=== PATIENT | male | born 1965 | race Caucasian/White ===

== ENCOUNTER 2020-01-29 10:47 | Inpatient (IN) ==
[2020-01-29] MEDS ORDERED: 0.9 % SODIUM CHLORIDE 500 ML IV ONE (11:26)
--- NOTE | 2020-01-29 11:42 | Emergency Department Note ---
HPI General Chief complaint: Weakness Stated complaint: shortness of breath Time Seen by Provider: 01/29/20 11:03 Source: patient Mode of arrival: ambulatory Limitations: no limitations History of Present Illness HPI Narrative: Narrative: Patient is coming the emergency room accompanied by his , Stephanie, due to confusion and weakness as well as some shaking of his extremities. At home he is on oxygen but he is uncertain and she is not perfectly certain thinking it is 1 to 2 L/min. He was discharged 5 days ago from [facility] after a 5-day stay related to hypoxia and CO2 retention. Suspicion was high for sleep apnea and he was set up for an appointment for this but he unders tood that he could have a home study and so canceled this. New information is that he cannot have a home study, it does not qualify for what ever reason, and has not yet had the and facilities test/appointment set up for sleep apnea diagnosis or not. He feels cold all the time. He has no thyroid disease and they are uncertain if he was checked. He has no upper respiratory symptoms. He has had some mild back and neck discomfort since his hospital stay. He does suffer some with some anxiety and has had difficulties with a borrowed CPAP machine getting used to having it on his face feeling anxious about that. He has sudden jerks here and there on various parts of his body particularly his hands or arms. He falls asleep very easily even abnormally/unexpectedly. Both he and his confirmed that he was not on any diuretic prior to his admission and his weight did come down 25 pounds during those 5 days. They got quite a bit of fluid out of his legs it sounds like. He had had swelling in his legs for about a year. Related Data Home Medications Medication Instructions Recorded Confirmed acetazolamide 125 mg PO BID 01/29/20 01/29/20 amlodipine 10 mg PO QDAY 01/29/20 01/29/20 aspirin 81 mg PO QDAY 01/29/20 01/29/20 blood-glucose meter [True Metrix 01/29/20 01/29/20 Air Glucose Meter] glipizide 10 mg PO BID 01/29/20 01/29/20 hydrochlorothiazide 25 mg PO QDAY 01/29/20 01/29/20 hydroxyzine HCl 50 mg PO Q4H PRN 01/29/20 01/29/20 losartan 100 mg PO QDAY 01/29/20 01/29/20 metformin 1,000 mg PO BID 01/29/20 01/29/20 metoprolol succinate 50 mg PO BID 01/29/20 01/29/20 potassium chloride 20 meq PO QDAY 01/29/20 01/29/20 spironolactone 25 mg PO BID 01/29/20 01/29/20 torsemide 20 mg PO QDAY 01/29/20 01/29/20 Allergies Allergy/AdvReac Type Severity Reaction Status Date / Time lisinopril Allergy Verified 01/29/20 10:56 Review of Systems ROS ROS Narrative: Narrative: 12 system Review of Systems negative except as mentioned above. [facility] Narrative Patient History Narrative: Narrative: Medical/Surgical/Family History All Active Problems (Updated 01/29/20 @ 13:28 by Mauri Juarez DO) Acute renal failure (ARF) (Acute) Hypoglycemia (Acute) Acute and chronic respiratory failure with hypoxia (Acute) Hyperkalemia (Acute) Diabetes mellitus type 2 in obese (Acute) History of acute respiratory failure (Acute) History of chronic respiratory failure (Acute) Obesity hypoventilation syndrome (Acute) Diastolic heart failure (Acute) Hypertension, essential (Acute) Diabetes mellitus, type 2 (Acute) Obesity (BMI 30-39.9) (Acute) Medical History (Updated 01/29/20 @ 13:28 by Mauri Juarez DO) Diabetes mellitus, type 2 (Acute) Diastolic heart failure (Acute) History of acute respiratory failure (Acute) History of chronic respiratory failure (Acute) Hypertension, essential (Acute) Obesity (BMI 30-39.9) (Acute) Obesity hypoventilation syndrome (Acute) Family History (Updated 01/29/20 @ 11:54 by Mauri Juarez DO) Colon cancer Father Cancer Mother Social History Smoking Status: Never smoker Exam Narrative Narrative: Narrative: General Limitations: no limitations General appearance: Present in no apparent distress, lethargic, nontoxic, obtunded (Intermittently seems quite slow in his responses but other times seems to be more alert and awake. This comes and goes fairly quickly.) and sleepy Head Head: Present atraumatic and normocephalic Eye Eye: Present normal appearance, PERRL and EOMI ENT ENT: Present normal oropharynx and mucous membranes dry (Mildly) Neck Neck: Present trachea midline; Absent lymphadenopathy and thyromegaly Chest Chest: Present symmetric chest wall rise Respiratory Respiratory: Present decreased breath sounds and other (Breathing seems rather shallow and mildly irregular.); Absent respiratory distress, rales/crackles, wheezes, stridor, accessory muscle use and prolonged expiratory phase Cardiovascular Cardiovascular: Present regular rate and normal rhythm; Absent systolic murmur and diastolic murmur Adbominal Abdominal: Present soft and other (Moderate to severely obese.); Absent diste ntion, tenderness, guarding, rebound, rigidity, organomegaly and mass Extremities Extremities: Present other (Some bronzing and chronic changes and roughness to the skin of the anterior right lower extremity mostly the lower one half and wrinkling as if previous edema has resolved (which is reported).); Absent pedal edema, pretibial edema, calf tenderness and cyanosis Back Back: Absent CVA tenderness (R), CVA tenderness (L) and spinous process tenderness Neurological Neurological: Present CN II-XII intact and other (Seem very slow to come to his memory.Sleepy but seems appropriate and interactive and able to remember some things easily and well and other things) Psychiatric Psychiatric: Present flat affect and serious; Absent depressed, agitated, anx ious and poor eye contact Skin Skin: Present warm (WNL) and dry; Absent cyanosis and pallor Course Vital Signs Vital signs: Vital Signs Temperature 96.7 F L 01/29/20 10:48 Pulse Rate 66 01/29/20 10:48 Respiratory Rate 16 01/29/20 10:48 Blood Pressure 99/56 01/29/20 10:48 Pulse Oximetry (%) 100 01/29/20 10:48 Temperature 96.7 F L 01/29/20 10:48 Pulse Rate 70 01/29/20 15:01 Respiratory Rate 20 01/29/20 15:01 Blood Pressure 97/61 01/29/20 15:01 Pulse Oximetry (%) 92 01/29/20 15:01 [facility] MDM Narrative Medical decision making narrative: Narrative: 11:06 AM - interviewed and examined. Rather sleepy, slow talking, moderately to severely overweight individual with suspicion for sleep apnea. With confusion, weakness, tremors this all could be related. He was sent home recently on oxygen and he could have worsened in these regards. I am leaving him on oxygen at 2 L while I do an ABG, chest x-ray, labs. Old labs and information from [facility] to be reviewed. Did he have a TSH. He does have some moderate exophthalmos here today. 11:45 AM - EKG demonstrates sinus rhythm with PVC. No acute ACS. No old EKG available for comparison. 12:13 PM - ABG comes back with pH significantly low at 7.18, PCO2 significantly elevated at 72, PO2 of 73. Lactic acid is 1.4. Base excess slightly low at - 3.1. S O2 89.9. Bicarb 26.9. We will put him on BiPAP and minimize O2 administration. 1:10 PM - patient's labs come back with several critical's. White count is normal. Hemoglobin slightly concentrated at 17 0. Sodium is 128, potassium 6.4, chloride 86. BUN and creatinine markedly elevated at 127, 8.5. Glucose 29 and Accu-Chek confirms a 38 and half an amp of D50 ordered. LFTs are normal. Troponin elevated at 0.08. A serial/second troponin is ordered. CRP is 0.50. Review of patient's records from [facility] 5 days ago include medications of 4 diuretics. Presumably this is the cause of his acute severe renal failure. * Acetazolamide 250 mg tablets (was supposed to take a half twice a day?; Records from there indicate intent to discontinue this in the near future). * Hydrochlorothiazide 25 mg daily * Spironolactone 50 mg daily * And in his box was torsemide 20 mg daily Additional 500 cc of normal saline ordered. He has already had 1 L. An additional POC Chem-8 ordered to recheck on his electrolytes (especially potassium) 1:38 PM - after half an amp of glucose his blood sugars up to 87. Going to give him the second half of the ampule. 1:39 PM - I had canceled his second troponin but will go ahead with this blood draw. Very high likelihood that his elevation of 0.08 is only due to his acute renal failure but will prove this to be true with the second troponin. 3:14 PM - spoke with Dr. Myrick who is willing to consult on patient and has already written orders for fluids of D5 with bicarbonate at 125/h x 2 L. He has written orders for Kayexalate. And for future labs he believes that patient's renal failure will improve. Hospitalist call out to discuss for admission. 3:45 PM - time approximate, I spoke with Dr. Blu Ryan, hospitalist who is willing to accept this patient. Lab Data Result diagrams: 01/29/20 11:34 01/29/20 11:34 Labs: Lab Results 01/29/20 01/29/20 01/29/20 Range/Units 11:34 11:34 11:34 WBC 8.8 (4.5-11.0) K/mcL RBC 6.07 H (4.50-5.90) M/mcL Hgb 17.0 H (13.5-16.5) g/dL Hct 54.5 (41.0-55.0) % POC Hct (41-55) % MCV 89.8 (80.0-100.0) fL MCH 28.0 (26.0-34.0) pg MCHC 31.2 (31.0-36.0) g/dL RDW 15.2 H (11.5-14.5) % Plt Count 242 (140-440) K/mcL MPV 11.9 H (7.4-10.4) fL Neut % (Auto) 77.8 (38.0-78.0) % Lymph % (Auto) 8.3 L (15.0-49.0) % [place] % (Auto) 13.3 H (1.0-12.0) % Eos % (Auto) 0.3 (0.0-7.0) % Baso % (Auto) 0.3 (0.0-2.0) % Lymph # (Auto) 0.73 L (1.50-4.80) K/mcL [place] # (Auto) 1.17 H (0.10-0.90) K/mcL Eos # (Auto) 0.03 (0.00-0.70) K/mcL Baso # (Auto) 0.03 (0.00-0.20) K/mcL Absolute Neutrophils 6.84 (1.80-8.00) K/mcL POC Sodium (133-145) mEq/L Sodium 128 L (133-145) mmol/L POC Potassium (3.3-5.1) mEql/L Potassium 6.4 H* (3.3-5.1) mmol/L POC Chloride (96-108) mEq/L Chloride 86 L (96-108) mmol/L Carbon Dioxide 26 (22-30) mmol/L POC Total CO2 (22-30) mmol/L Anion Gap 16.0 (8.0-16.0) POC BUN (6-20) mg/dL BUN 127 H* (6-20) mg/dL Creatinine 8.5 H* (0.7-1.2) mg/dL POC Creatinine (0.6-1.2) mg/dL GFR Calculation 6 Glucose 29 L* (70-105) mg/dL POC Glucose (70-105) mg/dL Calcium 9.7 (8.6-10.4) mg/dL POC WB Ioniz Calcium (1.16-1.32) mmEq/L Total Bilirubin 0.4 (0.1-1.0) mg/dL AST 20 (<40) U/L ALT 37 (<40) U/L Alkaline Phosphatase 52 (39-117) U/L Troponin T 0.08 H* (<0.03) ng/mL C-Reactive Protein 0.50 (0.03-0.80) mg/dL Total Protein 7.1 (5.9-8.4) gm/dL Albumin 3.8 (3.2-5.2) gm/dL Globulin 3.3 (2.2-3.7) gm/dL Albumin/Globulin Ratio 1.2 (1.0-2.3) 01/29/20 01/29/20 Range/Units 13:55 13:55 WBC (4.5-11.0) K/mcL RBC (4.50-5.90) M/mcL Hgb (13.5-16.5) g/dL Hct (41.0-55.0) % POC Hct 54 (41-55) % MCV (80.0-100.0) fL MCH (26.0-34.0) pg MCHC (31.0-36.0) g/dL RDW (11.5-14.5) % Plt Count (140-440) K/mcL MPV (7.4-10.4) fL Neut % (Auto) (38.0-78.0) % Lymph % (Auto) (15.0-49.0) % [place] % (Auto) (1.0-12.0) % Eos % (Auto) (0.0-7.0) % Baso % (Auto) (0.0-2.0) % Lymph # (Auto) (1.50-4.80) K/mcL [place] # (Auto) (0.10-0.90) K/mcL Eos # (Auto) (0.00-0.70) K/mcL Baso # (Auto) (0.00-0.20) K/mcL Absolute Neutrophils (1.80-8.00) K/mcL POC Sodium 128 L (133-145) mEq/L Sodium (133-145) mmol/L POC Potassium 6.8 H* (3.3-5.1) mEql/L Potassium (3.3-5.1) mmol/L POC Chloride 95 L (96-108) mEq/L Chloride (96-108) mmol/L Carbon Dioxide (22-30) mmol/L POC Total CO2 24 (22-30) mmol/L Anion Gap (8.0-16.0) POC BUN 135 H* (6-20) mg/dL BUN (6-20) mg/dL Creatinine (0.7-1.2) mg/dL POC Creatinine 7.9 H* (0.6-1.2) mg/dL GFR Calculation Glucose (70-105) mg/dL POC Glucose 123 H (70-105) mg/dL Calcium (8.6-10.4) mg/dL POC WB Ioniz Calcium 1.10 L (1.16-1.32) mmEq/L Total Bilirubin (0.1-1.0) mg/dL AST (<40) U/L ALT (<40) U/L Alkaline Phosphatase (39-117) U/L Troponin T 0.07 H* (<0.03) ng/mL C-Reactive Protein (0.03-0.80) mg/dL Total Protein (5.9-8.4) gm/dL Albumin (3.2-5.2) gm/dL Globulin (2.2-3.7) gm/dL Albumin/Globulin Ratio (1.0-2.3) Discharge Plan Patient/Caregiver Discharge Instructions Pt seen by [employer]/PA only: No Clinical Impression: Acute renal failure (ARF), Hypoglycemia, Acute and chronic respiratory failure with hypoxia, Hyperkalemia, Diabetes mellitus type 2 in obese Patient Disposition: Xfer As Inpt ([facility]) Follow up with: Trevor Elliott DO [Primary Care Provider] - Prescriptions: No Action torsemide 20 mg Tablet 20 mg PO QDAY RF: 0 metoprolol succinate 50 mg Tablet Extended Release 24 Hr 50 mg PO BID RF: 0 glipizide 10 mg Tablet 10 mg PO BID RF: 0 acetazolamide 250 mg Tablet 125 mg PO BID RF: 0 spironolactone 25 mg Tablet 25 mg PO BID RF: 0 (DME) blood-glucose meter [True Metrix Air Glucose Meter] Kit MISCELLANEOUS RF: 0 amlodipine 10 mg Tablet 10 mg PO QDAY RF: 0 aspirin 81 mg Tablet,Chewable 81 mg PO QDAY RF: 0 hydroxyzine HCl 25 mg Tablet 50 mg PO Q4H PRN (Reason: .) RF: 0 hydrochlorothiazide 25 mg Tablet 25 mg PO QDAY RF: 0 losartan 100 mg Tablet 100 mg PO QDAY RF: 0 metformin 1,000 mg Tablet Extended Release 24hr 1,000 mg PO BID RF: 0 potassium chloride 20 mEq Tablet Extended Release 20 meq PO QDAY RF: 0
[2020-01-29 12:29] LABS: Basophils # (Auto) 0.03 K/mcL (0.00-0.20); Basophils % (Auto) 0.3 % (0.0-2.0); Eosinophils # (Auto) 0.03 K/mcL (0.00-0.70); Eosinophils % (Auto) 0.3 % (0.0-7.0); Hematocrit 54.5 % (41.0-55.0); Lymphocytes # (Auto) 0.73 K/mcL (1.50-4.80); Lymphocytes % (Auto) 8.3 % (15.0-49.0); Mean Cell Volume 89.8 fL (80.0-100.0); Mean Corpuscular HGB Conc 31.2 g/dL (31.0-36.0); Mean Platelet Volume 11.9 fL (7.4-10.4); Monocytes # (Auto) 1.17 K/mcL (0.10-0.90); Monocytes % (Auto) 13.3 % (1.0-12.0); Neutrophils % (Auto) 77.8 % (38.0-78.0); Platelet Count 242 K/mcL (140-440); RBC 6.07 M/mcL (4.50-5.90); Red Cell Distribution Width 15.2 % (11.5-14.5); WBC 8.8 K/mcL (4.5-11.0)
[2020-01-29 13:10] LABS: ALT/SGPT 37 U/L (<40); AST/SGOT 20 U/L (<40); Albumin 3.8 gm/dL (3.2-5.2); Albumin/Globulin Ratio 1.2 (1.0-2.3); Alkaline Phosphatase 52 U/L (39-117); Bilirubin,Total 0.4 mg/dL (0.1-1.0); Blood Urea Nitrogen 127 mg/dL (6-20); Calcium 9.7 mg/dL (8.6-10.4); Carbon Dioxide 26 mmol/L (22-30); Chloride 86 mmol/L (96-108); Globulin 3.3 gm/dL (2.2-3.7); Glomerular Filtration Rate 6; Glucose 29 mg/dL (70-105)
[2020-01-29] MEDS ORDERED: DEXTROSE 50% 50 ML VIAL IV ONE ×3 (13:13→16:48)
[2020-01-29] MEDS ORDERED: 0.9 % SODIUM CHLORIDE 1,000 ML IV ONE (13:28)
--- NOTE | 2020-01-29 13:52 | XRay Report ---
INDICATION: CO2 retention; ro CHF TECHNIQUE: AP portable semierect upright chest x-ray COMPARISON: None FINDINGS:Suboptimal evaluation due to patient's large body size and difficulty cooperating. Lungs:Lung bases are not well-visualized. There is density at both lung bases which probably represents volume loss. Pneumonia is possible. Heart, vascular:Heart size is within normal limits considering AP positioning and magnification. Pulmonary vascularity is mildly prominent but without definite pulmonary edema Mediastinum, nick:No mediastinal widening. No hilar mass Pleura:Elevated right hemidiaphragm, chronicity not certain Skeletal:Negative. IMPRESSION: 1. Technically limited evaluation 2. Elevated right hemidiaphragm 3. Bilateral, bibasilar pulmonary parenchymal density. Findings may be due to volume loss but inflammatory infiltrate is possible Interpreted and Authenticated by: Lobito Pelletier 01/29/20
[2020-01-29 14:26] LABS: POC Calcium, Ionized 1.1 mmEq/L (1.16-1.32); POC Creatinine 7.9 mg/dL (0.6-1.2); POC Potassium 6.8 mEql/L (3.3-5.1)
[2020-01-29] MEDS ORDERED: CALCIUM GLUCONATE 7 MEQ in DEXTROSE 5% IN WATER 50 ML IV ONE (14:49)
[2020-01-29] MEDS ORDERED: DEXTROSE 5%-NS 1,000 ML IV SCH (15:00)
[2020-01-29] MEDS ORDERED: SODIUM POLYSTYRENE SULFONATE 15 GM/60 ML SUSPENSION PO ONE (15:07)
--- NOTE | 2020-01-29 15:58 | Nephrology History & Physical ---
HPI History of Present Illness Patient information: Note initiated : 01/29/20 at 3:55 pm Service Date, if different from initiated Date: [] Patient: Asif Longo a 54 y/o M admitted on for shortness of breath. Chief Complaint: [SOB] History of present illness: Mr. Longo is a 54 year old M who was recently hospitalized at [facility] with a diagnosis of congestive heart failure and diastolic dysfunction with obesity related hypoventilation. He underwent aggressive diuresis with about 25 pounds of fluid loss over the past week or so. He was prescribed BiPAP. He was also diabetic on oral hypoglycemic. He was on a combination of acetazolamide 125 twice daily, amlodipine 10 mg a day, Glipizide 10 twice daily, Dyazide 25 mg a day, losartan 100 mg a day, Metformin 1000 mg twice daily, metoprolol succinate 50 mg twice daily, KCl 20 mEq a day, spironolactone 25 mg twice daily, and furosemide 20 mg. Rapid fluid loss coupled with an ARB led to acute renal failure due to renal hypoperfusion. Confirmed a combination of acute renal failure, respiratory acidosis, hypoglycemia, and beta-blockade is leading to hyperkalemia that should be reversible by stopping the ARB, placing bicarbonate to correct part of the acidosis, glucose to promote intracellular potassium shift, and holding the beta-rick as this can contribute to shift to the extracellular space of potassium due to lack of uptake by liver and muscle. Also give Kayexalate to increase GI losses of potassium. Given all these findings I think this patient can be managed without dialysis. Diuretics will have to be reworked before discharge. Laboratory Tests 01/29/20 01/29/20 01/29/20 11:34 11:34 11:34 WBC 8.8 Hgb 17.0 H Hct 54.5 MCV 89.8 Plt Count 242 Eos % (Auto) 0.3 Sodium 128 L Potassium 6.4 H* Chloride 86 L Carbon Dioxide 26 Anion Gap 16.0 BUN 127 H* Creatinine 8.5 H* GFR Calculation 6 Glucose 29 L* Calcium 9.7 Total Bilirubin 0.4 AST 20 ALT 37 Alkaline Phosphatase 52 Troponin T 0.08 H* C-Reactive Protein 0.50 Total Protein 7.1 Albumin 3.8 Albumin/Globulin Ratio 1.2 By 5:00 there is been some improvement in his hypoxemic hypercapnic respiratory failure with respiratory acidosis and hyperkalemia. There is also been a slight improvement in his serum creatinine. He remains hypotensive lethargic but arousable with noxious stimuli. Review of Systems ROS unobtainable: due to mental status All systems: reviewed and no additional remarkable complaints except as stated PFSH PFSH All Active Problems (Updated 01/29/20 @ 21:54 by Lucas Myrick MD) Abnormal blood electrolyte level (Acute) Acute renal failure (ARF) (Acute) Hypoglycemia (Acute) Acute and chronic respiratory failure with hypoxia (Acute) Hyperkalemia (Acute) Diabetes mellitus type 2 in obese (Acute) History of acute respiratory failure (Acute) History of chronic respiratory failure (Acute) Obesity hypoventilation syndrome (Acute) Diastolic heart failure (Acute) Hypertension, essential (Acute) Diabetes mellitus, type 2 (Acute) Obesity (BMI 30-39.9) (Acute) Medical History Diabetes mellitus, type 2 (Acute) Diastolic heart failure (Acute) History of acute respiratory failure (Acute) History of chronic respiratory failure (Acute) Hypertension, essential (Acute) Obesity (BMI 30-39.9) (Acute) Obesity hypoventilation syndrome (Acute) Family History Mother Cancer Father Colon cancer Social History smoking status: Never smoker additional history: Past surgical history includes hernia repair Social history: Patient denies tobacco or alcohol and lives home with family MEDS/ALLERGIES Home Medications and Allergies Home Medications Medication Instructions Recorded Confirmed Type acetazolamide 125 mg PO BID 01/29/20 01/29/20 History amlodipine 10 mg PO QDAY 01/29/20 01/29/20 History aspirin 81 mg PO QDAY 01/29/20 01/29/20 History blood-glucose meter [True Metrix 01/29/20 01/29/20 History Air Glucose Meter] glipizide 10 mg PO BID 01/29/20 01/29/20 History hydrochlorothiazide 25 mg PO QDAY 01/29/20 01/29/20 History hydroxyzine HCl 50 mg PO Q4H PRN 01/29/20 01/29/20 History losartan 100 mg PO QDAY 01/29/20 01/29/20 History metformin 1,000 mg PO BID 01/29/20 01/29/20 History metoprolol succinate 50 mg PO BID 01/29/20 01/29/20 History potassium chloride 20 meq PO QDAY 01/29/20 01/29/20 History spironolactone 25 mg PO BID 01/29/20 01/29/20 History torsemide 20 mg PO QDAY 01/29/20 01/29/20 History Allergies Allergy/AdvReac Type Severity Reaction Status Date / Time lisinopril Allergy Verified 01/29/20 10:56 Physical Examination Vital Signs Vital signs: Temp Pulse Resp BP Pulse Ox 35.9 C L 68 23 H 100/59 93 01/29/20 10:48 01/29/20 15:31 01/29/20 15:31 01/29/20 15:31 01/29/20 15:31 General Appearance General appearance: chronically ill and fatigue Exam Narrative: Lethargic EENT EENT: ATNC, PERRL and mucous membranes dry Neck Neck: no JVD, no carotid bruit and supple Cardiovascular Cardiology: no murmurs, no gallops, no edema (Peers like he has had significant edema in the recent past), regular rhythm, normal S1 and normal S2 Gastrointestinal Gastrointestinal: normoactive bowel sounds, no tenderness and no guarding Integumentary Integumentary: no rash Neurologic Neurologic: no focal deficit, asterixis and obtunded Musculoskeletal Musculoskeletal: no cyanosis and no clubbing Psychiatric Psychiatric: mood/affect appropriate Results Lab Results Result Diagrams: 01/29/20 11:34 01/29/20 17:26 Lab results: Most recent lab results Calcium 9.7 mg/dL (8.6-10.4) 01/29/20 11:34 A/P Assessment and plan (1) Acute renal failure (ARF): Assessment and plan: * The most likely explanation is excessive diuresis leading to hypotension in the presence of an ARB medication which would lead to decreased renal perfusion and acute renal failure * This is the case one would expect improvement in GFR within 72 hours of orthodoxy of adequate blood pressure * Continue volume expansion * Bicarb containing fluids to correct respiratory acidosis * Further recommendations to follow * Given the improvement in potassium no acute need for dialysis this evening Status: Acute Qualifiers: Acute renal failure type: unspecified Qualified Code(s): N17.9 - Acute kidney failure, unspecified (2) Abnormal blood electrolyte level: Assessment and plan: * Hyperkalemia due to decreased GFR, intracellular fluid shifts due to beta-blockers, decreased renal elimination due to ARB therapy, decreased cellular uptake due to lack of insulin and hypoglycemia * Kayexalate has been given * Bicarbonate containing IV fluids as pH initially was 7.1 * Monitor serum potassium * Glucose and insulin as needed Status: Acute (3) Hypoglycemia: Assessment and plan: * Most likely the prolonged T1 half of glipizide in the setting of acute renal failure * This should improve with time holding the glipizide * Dextrose containing IV fluids have been ordered Status: Acute (4) Acute and chronic respiratory failure with hypoxia: Assessment and plan: * Respiratory acidosis and hypoxemia due to hypoventilation should respond to BiPAP * He should then be discharged without BiPAP therapy at home * Need to adjust his diuretics once his GFR improves * Hold all diuretics for now Status: Acute Comment: This is the main problem (5) Diastolic heart failure: Assessment and plan: * When his GFR improves and hemodynamics improve, can use beta-rick or diltiazem to keep heart rate slow as his primary cardiac issues diastolic dysfunction * Need to let us blood pressure trend to about 120-130 systolic * Further recommendations will be made on a daily basis Status: Acute Comment: Beta-blockers and/or diltiazem Add back loop diuretic when edema returns and blood pressure better Qualifiers: Heart failure chronicity: acute on chronic Qualified Code(s): I50.33 - Acute on chronic diastolic (congestive) heart failure (6) Obesity hypoventilation syndrome: Assessment and plan: * Will need BiPAP at home * Has yet to undergo a sleep study Status: Acute Time Spent With Patient Time: Total time spent is greater than 50% in coordination of care (as documented) at patient's floor/unit and/or counseling patient: Total time spent with greater than 50% in coordination of care (as documented) at patient's floor/unit and/or counseling patient:: Greater than 35 minutes
--- NOTE | 2020-01-29 16:31 | Internal Med History&Physical ---
HPI History of Present Illness Patient information: Note initiated : 01/29/20 at 4:12 pm Service Date, if different from initiated Date: [] Patient: Asif Longo a 54 y/o M admitted on for shortness of breath. Chief Complaint: [] History of present illness: Mr. Longo is a 54 year old M Presents the ED with weakness confusion somnolence working of his lower extremities. Most of the history is obtained from the patient is currently on BiPAP and somnolent. Patient was at [facility] for 5 days for hypercapnic respiratory failure diagnosed with obesity hypoventilation syndrome and also diastolic heart failure. He was significantly fluid overloaded when he arrived and was diuresed significantly while there. Seen by Dr. Gardiner on the 04/12 and had pulmonary function testing suggesting a restrictive lung disease, likely related to his morbid obesity. He was supposed to undergo a sleep study but has not had that yet. He has been borrowing a family members BiPAP or CPAP machine. I said he was doing okay initially at home but on Wednesday started having some monomeric confusion and some jerking. He is also had decreased appetite and oral intake. Symptoms of confusion and weakness became so worse today that she brought him into the ED. In the ED he was evaluated and found to have severe metabolic disturbance with a creatinine of 8.5 potassium 6.4 sodium 128. His ABG showed a pH of 7.18 with a CO2 of 72. Globin of 17 evidence of hemoconcentration. Hypotensive in the high 70s to 80s. Given IV fluid boluses and put on BiPAP with improvement in his mentation. Yarn Twister Dr. Myrick was contacted and patient was started on continued IV fluids per his direction. She had a Covid test in the ED which is negative. Review of Systems: Pertinent positives as above. Denies headache/fever/chills/nausea/vomiting/chest or abdominal pain//diarrhea. Remaining 10 point review of system reviewed negative. PFSH PFSH All Active Problems (Updated 01/29/20 @ 13:28 by Mauri Juarez DO) Acute renal failure (ARF) (Acute) Hypoglycemia (Acute) Acute and chronic respiratory failure with hypoxia (Acute) Hyperkalemia (Acute) Diabetes mellitus type 2 in obese (Acute) History of acute respiratory failure (Acute) History of chronic respiratory failure (Acute) Obesity hypoventilation syndrome (Acute) Diastolic heart failure (Acute) Hypertension, essential (Acute) Diabetes mellitus, type 2 (Acute) Obesity (BMI 30-39.9) (Acute) Medical History (Updated 01/29/20 @ 13:28 by Mauri Juarez DO) Diabetes mellitus, type 2 (Acute) Diastolic heart failure (Acute) History of acute respiratory failure (Acute) History of chronic respiratory failure (Acute) Hypertension, essential (Acute) Obesity (BMI 30-39.9) (Acute) Obesity hypoventilation syndrome (Acute) Family History (Updated 01/29/20 @ 11:54 by Mauri Juarez DO) Mother Cancer Father Colon cancer Social History (Updated 01/29/20 @ 16:30 by Blu Ryan DO) smoking status: Never smoker additional history: Past surgical history includes hernia repair Social history: Patient denies tobacco or alcohol and lives home with family MEDS/ALLERGIES Home Medications and Allergies Home Medications Medication Instructions Recorded Confirmed Type acetazolamide 125 mg PO BID 01/29/20 01/29/20 History amlodipine 10 mg PO QDAY 01/29/20 01/29/20 History aspirin 81 mg PO QDAY 01/29/20 01/29/20 History blood-glucose meter [True Metrix 01/29/20 01/29/20 History Air Glucose Meter] glipizide 10 mg PO BID 01/29/20 01/29/20 History hydrochlorothiazide 25 mg PO QDAY 01/29/20 01/29/20 History hydroxyzine HCl 50 mg PO Q4H PRN 01/29/20 01/29/20 History losartan 100 mg PO QDAY 01/29/20 01/29/20 History metformin 1,000 mg PO BID 01/29/20 01/29/20 History metoprolol succinate 50 mg PO BID 01/29/20 01/29/20 History potassium chloride 20 meq PO QDAY 01/29/20 01/29/20 History spironolactone 25 mg PO BID 01/29/20 01/29/20 History torsemide 20 mg PO QDAY 01/29/20 01/29/20 History Allergies Allergy/AdvReac Type Severity Reaction Status Date / Time lisinopril Allergy Verified 01/29/20 10:56 EXAM Constitutional Vitals: Temp Pulse Resp BP Pulse Ox 96.7 F L 69 22 90/68 94 01/29/20 10:48 01/29/20 16:01 01/29/20 16:01 01/29/20 16:01 01/29/20 16:01 Exam: General: Lethargic, No acute Distress, obese Eyes/N/T: EOMI, PERRL, dry MM Head/Neck: neck supple, normocephalic atraumatic CV: RRR, No murmurs, normal s1/s2 Pulm: Clear b/l, no wheezing/rhonchi/rales Abd: soft, nontender, +BS x4 Ext: no clubbing/cyanosis, minimal b/l LE edeme L>R Neuro: no focal deficits, moves all extremities, CN 2-12 grossly intact, symmetrical strength b/l upper/lower, sensations intact b/l upper/lower Skin: warm/dry DATA Data Completed and Pending Labs: Labs from last 24 hours 01/29/20 01/29/20 01/29/20 13:55 13:55 11:34 WBC RBC Hgb Hct POC Hct 54 MCV MCH MCHC RDW Plt Count MPV Neut % (Auto) Lymph % (Auto) [place] % (Auto) Eos % (Auto) Baso % (Auto) Lymph # (Auto) [place] # (Auto) Eos # (Auto) Baso # (Auto) Absolute Neutrophils POC Sodium 128 L Sodium POC Potassium 6.8 H* Potassium POC Chloride 95 L Chloride Carbon Dioxide POC Total CO2 24 Anion Gap POC BUN 135 H* BUN Creatinine POC Creatinine 7.9 H* GFR Calculation Glucose POC Glucose 123 H Calcium POC WB Ioniz Calcium 1.10 L Total Bilirubin AST ALT Alkaline Phosphatase Troponin T 0.07 H* 0.08 H* C-Reactive Protein Total Protein Albumin Globulin Albumin/Globulin Ratio 01/29/20 01/29/20 11:34 11:34 WBC 8.8 RBC 6.07 H Hgb 17.0 H Hct 54.5 POC Hct MCV 89.8 MCH 28.0 MCHC 31.2 RDW 15.2 H Plt Count 242 MPV 11.9 H Neut % (Auto) 77.8 Lymph % (Auto) 8.3 L [place] % (Auto) 13.3 H Eos % (Auto) 0.3 Baso % (Auto) 0.3 Lymph # (Auto) 0.73 L [place] # (Auto) 1.17 H Eos # (Auto) 0.03 Baso # (Auto) 0.03 Absolute Neutrophils 6.84 POC Sodium Sodium 128 L POC Potassium Potassium 6.4 H* POC Chloride Chloride 86 L Carbon Dioxide 26 POC Total CO2 Anion Gap 16.0 POC BUN BUN 127 H* Creatinine 8.5 H* POC Creatinine GFR Calculation 6 Glucose 29 L* POC Glucose Calcium 9.7 POC WB Ioniz Calcium Total Bilirubin 0.4 AST 20 ALT 37 Alkaline Phosphatase 52 Troponin T C-Reactive Protein 0.50 Total Protein 7.1 Albumin 3.8 Globulin 3.3 Albumin/Globulin Ratio 1.2 A/P Narrative A/P Narrative: A: *acute Encephalopathy, multifactorial including toxic-metabolic /hypoglycemic /hypercapnic: *DAVID with uremia: 2/2 volume depletion & diuretics & Hypotension *HyperKalemia, hyponatremia: 2/2 above plus meds *Hypotension: 2/2 meds -responded to IVF's *Hypercapnic respiratory failure: 2/2 above with obesity hypoventilation sy ndrome & restrictive lung disease *Obesity hypoventilation syndrome with restrictive lung disease per recent PFTs: *SHIRLEY (using a borrowed bipap/cpap for now): awaiting sleep study for home ventilatory system *DM w/Hypoglycemia: *HTN: *Anxiety: *h/o diastolic CHF *Myoclonus: 2/2 toxic-metabolic encephalopathy P: -IVF's per nephrology -Nephrology following -Follow-up chemistry specifically potassium later today -cont bipap and f/u ABG -monitor UOP, fluid balance -d/c'd multiple home diuretics and potassium -hold home norvasc/losartan/BB -monitor BG closely, SSI when eventually needed, hold home glip/met -check tsh/t4 - - -Follow-up with community worker outpatient -ppx: heparin/h2 Time Spent With Patient Time: Total time spent is greater than 50% in coordination of care (as documented) at patient's floor/unit and/or counseling patient:
[2020-01-29] MEDS ORDERED: IPRATROPIUM/ALBUTEROL 3 ML AMPUL.NEB NEB PRN (16:42)
[2020-01-29] MEDS ORDERED: ACETAMINOPHEN 325 MG TABLET PO PRN (16:42)
[2020-01-29] MEDS ORDERED: BISACODYL 10 MG SUPP.RECT PR PRN (16:42)
[2020-01-29] MEDS ORDERED: DEXTROSE 50% 50 ML VIAL IV PRN (16:42)
[2020-01-29] MEDS ORDERED: ONDANSETRON 4 MG/2 ML VIAL IV PRN (16:42)
[2020-01-29] MEDS ORDERED: DEXTROSE 31 GM ORAL.SUSP PO PRN (16:42)
[2020-01-29] MEDS ORDERED: NOREPINEPHRINE BITARTRATE 8 MG in 0.9 % SODIUM CHLORIDE 242 ML IV SCH (16:45)
[2020-01-29] MEDS ORDERED: NOREPINEPHRINE BITARTRATE 8 MG in 0.9 % SODIUM CHLORIDE 242 ML IV PRN (17:00)
[2020-01-29] MEDS ORDERED: SODIUM BICARBONATE VIAL 100 MEQ in DEXTROSE 5% IN WATER 900 ML IV SCH (17:00)
[2020-01-29] MEDS: 0.9 % SODIUM CHLORIDE 250 ML IV SCH (17:05)
[2020-01-29] MEDS: SODIUM BICARBONATE VIAL 100 MEQ in DEXTROSE 5% IN WATER 900 ML IV SCH (17:10)
[2020-01-29 18:43] LABS: Estimated Average Glucose(eAG) 235 mg/dL; Hemoglobin A1C 9.8 % Hgb (4.0-6.0)
[2020-01-29 18:54] LABS: Free T4 (Free Thyroxine) 1.05 ng/dL (0.93-1.70)
[2020-01-29 19:18] LABS: Albumin 3.4 gm/dL (3.2-5.2); Blood Urea Nitrogen 120 mg/dL (6-20); Calcium 8.9 mg/dL (8.6-10.4); Carbon Dioxide 23 mmol/L (22-30); Chloride 90 mmol/L (96-108); Glomerular Filtration Rate 8; Glucose 67 mg/dL (70-105); Phosphorous 6.2 mg/dL (2.5-4.5)
[2020-01-29] MEDS: INSULIN LISPRO 1 UNIT/0.01 ML UNIT SQ SCH (20:09)
[2020-01-29] MEDS: FAMOTIDINE/PF 20 MG/2 ML VIAL IV SCH (21:22)
[2020-01-29] MEDS: HEPARIN 5,000 UNIT/ML VIAL SQ SCH (21:22)
[2020-01-29] MEDS: 0.9 % SODIUM CHLORIDE 10 ML SYRINGE IV SCH (21:29)
[2020-01-30] MEDS: INSULIN LISPRO 1 UNIT/0.01 ML UNIT SQ SCH ×7 (00:19→20:53)
[2020-01-30] MEDS: SODIUM BICARBONATE VIAL 100 MEQ in DEXTROSE 5% IN WATER 900 ML IV SCH (00:20)
[2020-01-30] MEDS: 0.9 % SODIUM CHLORIDE 250 ML IV SCH ×2 (04:21→16:17)
[2020-01-30] MEDS: 0.9 % SODIUM CHLORIDE 10 ML SYRINGE IV SCH ×3 (05:46→20:52)
[2020-01-30 06:56] LABS: Hemoglobin 15.7 g/dL (13.5-16.5); Mean Cell Volume 90.1 fL (80.0-100.0); Mean Corpuscular HGB Conc 30.8 g/dL (31.0-36.0); Mean Platelet Volume 11.8 fL (7.4-10.4); Platelet Count 192 K/mcL (140-440); RBC 5.66 M/mcL (4.50-5.90); Red Cell Distribution Width 15.2 % (11.5-14.5); WBC 5.9 K/mcL (4.5-11.0)
--- NOTE | 2020-01-30 07:38 | Internal Med Progress Note ---
SUBJECTIVE Subjective Patient information: Note initiated : 01/30/20 at 7:33 am Service Date, if different from initiated Date: [] Patient: Asif Longo a 54 y/o M admitted on 01/29/20 for shortness of breath. Chief Complaint: [] Interval history: History of present illness: Mr. Longo is a 54 year old M Presents the ED with weakness confusion somnolence working of his lower extremities. Most of the history is obtained from the patient is currently on BiPAP and somnolent. Patient was at [facility] for 5 days for hypercapnic respiratory failure diagnosed with obesity hypoventilation syndrome and also diastolic heart failure. He was significantly fluid overloaded when he arrived and was diuresed significantly while there. Seen by Dr. Gardiner on the 04/12 and had pulmonary function testing suggesting a restrictive lung disease, likely related to his morbid obesity. He was supposed to undergo a sleep study but has not had that yet. He has been borrowing a family members BiPAP or CPAP machine. I said he was doing okay initially at home but on Wednesday started having some monomeric confusion and some jerking. He is also had decreased appetite and oral intake. Symptoms of confusion and weakness became so worse today that she brought him into the ED. In the ED he was evaluated and found to have severe metabolic disturbance with a creatinine of 8.5 potassium 6.4 sodium 128. His ABG showed a pH of 7.18 with a CO2 of 72. Globin of 17 evidence of hemoconcentration. Hypotensive in the high 70s to 80s. Given IV fluid boluses and put on BiPAP with improvement in his mentation. Lining [place]us[place] Dr. Myrick was contacted and patient was started on continued IV fluids per his direction. She had a Covid test in the ED which is negative. 01/29 Patient was able to sleep well last night. Feels little better. Blood pressure little low last night but improved today. Laboratory work is improved today. Review of Systems: denies headache/fever/chills/nausea/vomiting/chest or abdominal pain/cough/diarrhea. Otherwise see above. Constitutional Vitals: Vital Signs Temp Pulse Resp BP Pulse Ox 98.2 F 77 17 84/56 98 01/29/20 17:00 01/30/20 05:02 01/30/20 05:02 01/30/20 04:01 01/30/20 05:02 Period Temp Pulse Resp BP Sys/Amado Pulse Ox Last 24 Hr 96.7 F-98.2 F 64-77 15-28 77-118/41-96 86-100 Intake and Output 01/29/20 01/30/20 01/30/20 21:59 05:59 13:59 Intake Total 1213 Output Total 1300 1050 Balance -87 -1050 Weight 119.2 kg Intake & Output: Intake & Output 01/29/20 01/30/20 01/30/20 21:59 05:59 13:59 Intake Total 1213 Output Total 1300 1050 Balance -87 -1050 Weight 119.2 kg Intake: IV 1213 Sodium Chloride 0.9% 1,000 ml @ 1000 Wide Open IV BOLUS ONE Rx#: [id number] Dextrose 5%-Ns IV Solution 1, 78 000 ml @ 100 mls/hr IV .Q10H [facility] Rx#:[id number] Sodium Bicarbonate Vial 100 Meq 135 In Dextrose 5% in Water 900 ml @ 125 mls/hr IV Q8H [facility] Rx#: [id number] Output: Void Amount 1300 1050 Other: Urine Appearance Clear Clear Urine Color Dark Yellow Dark Yellow Urine Odor Strong Exam: General: awake, No acute Distress, obese Eyes/N/T: EOMI, Head/Neck: neck supple, CV: RRR, No murmurs, Pulm: Clear b/l, no wheezing/rhonchi/rales Abd: soft, nontender, +BS x4 Ext: no clubbing/cyanosis, minimal b/l LE edeme L>R Neuro: no focal deficits, moves all extremities, Skin: warm/dry OBJ DATA Labs CBC & Chem 7: 01/30/20 05:05 01/30/20 05:05 Labs: Abnormal Lab Results 01/30/20 01/29/20 01/29/20 05:05 17:26 17:26 RBC Hgb MCHC 30.8 L RDW 15.2 H MPV 11.8 H Lymph % (Auto) [place] % (Auto) Lymph # (Auto) [place] # (Auto) POC Sodium Sodium 129 L 130 L POC Potassium Potassium 5.9 H* 6.0 H* POC Chloride Chloride 90 L 92 L POC BUN BUN 120 H* 122 H* Creatinine 7.2 H* 7.0 H* POC Creatinine Glucose 67 L 67 L POC Glucose Hemoglobin A1c 9.8 H POC WB Ioniz Calcium Phosphorus 6.2 H* Troponin T 01/29/20 01/29/20 01/29/20 13:55 13:55 11:34 RBC Hgb MCHC RDW MPV Lymph % (Auto) [place] % (Auto) Lymph # (Auto) [place] # (Auto) POC Sodium 128 L Sodium POC Potassium 6.8 H* Potassium POC Chloride 95 L Chloride POC BUN 135 H* BUN Creatinine POC Creatinine 7.9 H* Glucose POC Glucose 123 H Hemoglobin A1c POC WB Ioniz Calcium 1.10 L Phosphorus Troponin T 0.07 H* 0.08 H* 01/29/20 01/29/20 11:34 11:34 RBC 6.07 H Hgb 17.0 H MCHC RDW 15.2 H MPV 11.9 H Lymph % (Auto) 8.3 L [place] % (Auto) 13.3 H Lymph # (Auto) 0.73 L [place] # (Auto) 1.17 H POC Sodium Sodium 128 L POC Potassium Potassium 6.4 H* POC Chloride Chloride 86 L POC BUN BUN 127 H* Creatinine 8.5 H* POC Creatinine Glucose 29 L* POC Glucose Hemoglobin A1c POC WB Ioniz Calcium Phosphorus Troponin T Meds: Medications Acetaminophen (Tylenol) 650 mg PO Q4-6HP PRN PRN Reason: PAIN/FEVER > 101 Albuterol/Ipratropium (Duoneb) 3 ml NEB Q4HRT PRN PRN Reason: dyspnea Bisacodyl (Dulcolax) 10 mg KS Q2-3DAYS PRN PRN Reason: Constipation Dextrose (Dextrose 50%) 0 ml IV UD PRN PRN Reason: Hypoglycemia Diagnostic Test (Pha) (Accu-Chek) 1 each FS Q2 [facility] Last Admin: 01/30/20 05:46 Dose: 1 each Documented by: Famotidine (Pepcid) 20 mg IV HS [facility] Last Admin: 01/29/20 21:22 Dose: 20 mg Documented by: Glucose (Insta-Glucose) 15 gm PO PRN PRN PRN Reason: Hypoglycemia Heparin Sodium (Porcine) (Heparin) 5,000 unit SQ Q12 [facility] Last Admin: 01/29/20 21:22 Dose: 5,000 unit Documented by: Sodium Bicarbonate 100 meq/ (Dextrose) 1,000 mls @ 125 mls/hr IV Q8H [facility] Stop: 01/30/20 08:59 Last Admin: 01/30/20 00:20 Dose: 125 mls/hr Documented by: Sodium Chloride (Sodium Chloride 0.9%) 250 mls @ 20 mls/hr IV .[id number] [facility] Last Admin: 01/30/20 04:21 Dose: Not Given Documented by: Norepinephrine Bitartrate 8 mg (/ Sodium Chloride) 250 mls @ 18.75 mls/hr IV Q14H PRN; Protocol PRN Reason: TITRATE TO KEEP MAP > 65 Insulin Human Lispro (Humalog) 0 unit SQ Q4 [facility]; Protocol Last Admin: 01/30/20 04:19 Dose: Not Given Documented by: Ondansetron HCl (Zofran) 4 mg IV Q4-6HP PRN PRN Reason: Nausea And Vomiting Sodium Chloride (Saline Flush) 10 ml IV Q8 [facility] Last Admin: 01/30/20 05:46 Dose: 10 ml Documented by: A/P Narrative A/P Narrative: A: *acute Encephalopathy, multifactorial including toxic-metabolic /hypoglycemic /hypercapnic: -Improving *DAVID with uremia: 2/2 volume depletion & diuretics & Hypotension -Cr 8.5 on admit, now 4.8 -improving *HyperKalemia, hyponatremia: 2/2 above plus meds -improving *Hypotension: 2/2 meds -responded to IVF's but later dropped o/n then improved again *Hypercapnic respiratory failure: 2/2 above with obesity hypoventilation syndrome & restrictive lung disease -on Bipap *Obesity hypoventilation syndrome with restrictive lung disease per recent PFTs: *SHIRLEY (using a borrowed bipap/cpap for now): awaiting sleep study for home ventilatory system *DM w/Hypoglycemia: *HTN: *Anxiety: *h/o diastolic CHF: *Myoclonus: 2/2 toxic-metabolic encephalopathy P: -IVF's per nephrology -Nephrology following -f/u ABG and wean off bipap today -monitor UOP, fluid balance -d/c'd multiple home diuretics and potassium -hold home norvasc/losartan/BB -monitor BG closely, SSI when eventually needed, hold home glip/met - -Follow-up with ditch tender outpatient -ppx: heparin/h2 Time Spent With Patient Time: Total time spent is greater than 50% in coordination of care (as documented) at patient's floor/unit and/or counseling patient:
[2020-01-30] MEDS: HEPARIN 5,000 UNIT/ML VIAL SQ SCH ×2 (08:07→20:52)
[2020-01-30 08:13] LABS: ALT/SGPT 26 U/L (<40); AST/SGOT 18 U/L (<40); Albumin/Globulin Ratio 0.9 (1.0-2.3); Alkaline Phosphatase 39 U/L (39-117); Bilirubin,Direct < 0.2 mg/dL (<0.3); Bilirubin,Total 0.4 mg/dL (0.1-1.0); Blood Urea Nitrogen 101 mg/dL (6-20); Calcium 8.8 mg/dL (8.6-10.4); Carbon Dioxide 25 mmol/L (22-30); Chloride 95 mmol/L (96-108); Globulin 3.2 gm/dL (2.2-3.7); Glomerular Filtration Rate 12; Glucose 97 mg/dL (70-105); Lactate Dehydrogenase 230 U/L (135-225); Phosphorous 4.9 mg/dL (2.5-4.5); Triglycerides 166 mg/dL (<150); Uric Acid 10.2 mg/dL (2.5-8.0)
[2020-01-30] MEDS ORDERED: 0.9 % SODIUM CHLORIDE 500 ML IV ONE (10:53)
--- NOTE | 2020-01-30 18:01 | Nephrology Progress Note ---
SUBJECTIVE Subjective Patient information: Note initiated : 01/30/20 at 5:55 pm Service Date, if different from initiated Date: [] Patient: Asif Longo 54 y/o M admitted on 01/29/20 for shortness of breath. Chief Complaint: [ARF with multiple fluid and electrolyte abnormalities] Patient is a 56-year-old gentleman just discharged from [facility] where he was diagnosed with diastolic dysfunction and volume overload was aggressively treated with a 4 diuretic cocktail and was found upon presentation to our emergency room to have acute renal failure in the setting of hypotension, hypoglycemia due to prolonged oral hypoglycemic half-life with a marked reduction in GFR, hyperkalemia, and a complicated respiratory acidosis with no metabolic compensation due to impaired bicarbonate regeneration capacity (acute renal failure and acetazolamide). On top of this is hyperkalemia due to exogenous potassium supplementation, acidosis, hypoglycemia with lack of insulin effect to promote cellular uptake of potassium, finally beta-blockers which would block hepatic and liver uptake of potassium related to beta-adrenergic stimulation. Despite a potassium approaching 7, serum creatinine above 9 this patient was successfully managed with judicious volume expansion, bicarbonate therapy, glucose administration, and stopping all the offending medications. In addition the use of BiPAP has helped with ventilation and PCO2 reduction. Problem will be qualifying this patient for home BiPAP under the conditions where it is not safe to send him home without BiPAP to do the qualifying test. Laboratory Tests 01/30/20 01/30/20 05:05 05:05 WBC 5.9 Hgb 15.7 Hct 51.0 MCV 90.1 Plt Count 192 Potassium 5.5 H Chloride 95 L Carbon Dioxide 25 Anion Gap 13.0 BUN 101 H* Creatinine 4.8 H GFR Calculation 12 Glucose 97 Uric Acid 10.2 H Calcium 8.8 Phosphorus 4.9 H Magnesium 2.8 H Lactate Dehydrogenase 230 H Albumin 3.0 L Constitutional Vitals: Vital Signs Temp Pulse Resp BP Pulse Ox 36.6 C 77 27 H 142/85 91 01/30/20 16:01 01/30/20 13:49 01/30/20 16:27 01/30/20 16:01 01/30/20 16:27 Period Temp Pulse Resp BP Sys/Amado Pulse Ox Last 24 Hr 36.2 C-36.7 C 71-77 15-28 67-144/47-96 86-100 Intake and Output 01/30/20 01/30/20 01/30/20 05:59 13:59 21:59 Intake Total 865 1472 450 Output Total 1050 1901 850 Balance -185 429 400 Weight 119.2 kg Patient Weight 01/31/20 05:59 Weight 119.2 kg Intake & Output: Intake & Output 01/30/20 01/30/20 01/30/20 05:59 13:59 21:59 Intake Total 865 1472 450 Output Total 1050 1901 850 Balance -185 429 400 Weight 119.2 kg Intake: IV 865 1000 Sodium Bicarbonate Vial 100 Meq 865 1000 In Dextrose 5% in Water 900 ml @ 125 mls/hr IV Q8H [facility] Rx#: [id number] Oral 472 450 Output: Void Amount 1050 1900 850 # of times incontinent of urine 1 Other: Meal Lunch Percent of Meal Consumed 100% Feeding Ability Assist with Tray Set Up Urine Appearance Clear Clear Clear Urine Color Dark Yellow Bright Yellow Dark Yellow Urine Odor Strong Normal Strong Stool Size Large Large Stool Color Brown Brown Stool Consistency Soft Soft # Bowel Movements 1 General appearance: cooperative and moderate distress Head Head exam: Present atraumatic and normocephalic Eye Eye exam: Present EOMI and PERRL; Absent nystagmus and scleral icterus Pupils: Present PERRL ENT ENT exam: Present mucous membranes moist Neck Neck exam: Present full ROM, meningismus and normal inspection Respiratory Respiratory exam: Present prolonged expiratory phase, rhonchi and wheezes; Absent rales Cardiovascular Cardiovascular exam: Present +S1 and +S2; Absent gallop and rubs GI/Abdominal GI/Abdominal exam: Present normal bowel sounds and soft; Absent guarding Rectal Rectal exam: Present deferred Extremities Exam Extremities exam: Present pedal edema (trace); Absent calf tenderness Back Exam Back exam: Absent tenderness Additional comments: Nl CVAT Neurological Exam Neurological exam: Present CN II-XII intact and oriented X3 Psychiatric Psychiatric exam: Present normal mood Skin Skin exam: Present dry and intact A/P Assessment and plan (1) Acute renal failure (ARF): Assessment and plan: * The most likely explanation is excessive diuresis leading to hypotension in the presence of an ARB medication which would lead to decreased renal perfusion and acute renal failure * If this is the case one would expect improvement in GFR within 72 hours of synagogue of adequate blood pressure * Continue volume expansion * Bicarb containing fluids to correct respiratory acidosis - mission accomplished. Bicarb drip stopped earlier today * Further recommendations to follow * Given the improvement in potassium no acute need for dialysis anticipated Status: Acute Qualifiers: Acute renal failure type: unspecified Qualified Code(s): N17.9 - Acute kidney failure, unspecified (2) Abnormal blood electrolyte level: Assessment and plan: * Hyperkalemia due to decreased GFR, intracellular fluid shifts due to beta-blockers, decreased renal elimination due to ARB therapy, decreased cellular uptake due to lack of insulin and hypoglycemia * Kayexalate has been given * Bicarbonate containing IV fluids as pH initially was 7.1 * Glucose and insulin as needed * Above successful, stop bicarb and kayexalate Status: Acute (3) Hypoglycemia: Assessment and plan: * Most likely the prolonged T1 half of glipizide in the setting of acute renal failure * This should improve with time holding the glipizide * Dextrose containing IV fluids have been ordered and finally stopped Status: Acute (4) Acute and chronic respiratory failure with hypoxia: Assessment and plan: * Respiratory acidosis and hypoxemia due to hypoventilation should respond to BiPAP * He should then be discharged without BiPAP therapy at home * Need to adjust his diuretics once his GFR improves * Hold all diuretics for now Status: Acute Comment: This is the main problem (5) Diastolic heart failure: Assessment and plan: * When his GFR improves and hemodynamics improve, can use beta-rick or diltiazem to keep heart rate slow as his primary cardiac issues diastolic dysfunction * Need to let us blood pressure trend to about 120-130 systolic * Further recommendations will be made on a daily basis Status: Acute Comment: Beta-blockers and/or diltiazem Add back loop diuretic when edema returns and blood pressure better Qualifiers: Heart failure chronicity: acute on chronic Qualified Code(s): I50.33 - Acute on chronic diastolic (congestive) heart failure (6) Obesity hypoventilation syndrome: Assessment and plan: * Will need BiPAP at home * Has yet to undergo a sleep study * Catch 22 => too sick to go home w/o BiPAP but does not qualify without an outpatient sleep study Status: Acute Time Spent With Patient Time: Total time spent is greater than 50% in coordination of care (as documented) at patient's floor/unit and/or counseling patient: Total time spent with greater than 50% in coordination of care (as documented) at patient's floor/unit and/or counseling patient:: Greater than 35 minutes
[2020-01-30] MEDS ORDERED: SIMETHICONE 80 MG TAB.CHEW CHEWED ONE (20:31)
[2020-01-30] MEDS: FAMOTIDINE/PF 20 MG/2 ML VIAL IV SCH (20:52)
[2020-01-31] MEDS: 0.9 % SODIUM CHLORIDE 10 ML SYRINGE IV SCH ×3 (05:58→21:06)
[2020-01-31] MEDS: 0.9 % SODIUM CHLORIDE 250 ML IV SCH ×2 (05:58→11:24)
[2020-01-31 07:10] LABS: ALT/SGPT 26 U/L (<40); AST/SGOT 23 U/L (<40); Albumin 3.2 gm/dL (3.2-5.2); Albumin/Globulin Ratio 0.9 (1.0-2.3); Alkaline Phosphatase 44 U/L (39-117); Bilirubin,Direct < 0.2 mg/dL (<0.3); Bilirubin,Total 0.6 mg/dL (0.1-1.0); Blood Urea Nitrogen 61 mg/dL (6-20); Calcium 9.5 mg/dL (8.6-10.4); Carbon Dioxide 26 mmol/L (22-30); Chloride 99 mmol/L (96-108); Globulin 3.7 gm/dL (2.2-3.7); Glomerular Filtration Rate 41; Glucose 239 mg/dL (70-105); Lactate Dehydrogenase 315 U/L (135-225); Phosphorous 3.6 mg/dL (2.5-4.5); Triglycerides 140 mg/dL (<150); Uric Acid 8.9 mg/dL (2.5-8.0)
[2020-01-31] MEDS: INSULIN LISPRO 1 UNIT/0.01 ML UNIT SQ SCH ×4 (08:34→21:04)
[2020-01-31] MEDS: HEPARIN 5,000 UNIT/ML VIAL SQ SCH ×2 (08:35→21:05)
--- NOTE | 2020-01-31 10:59 | Internal Med Progress Note ---
SUBJECTIVE Subjective Patient information: Note initiated : 01/31/20 at 10:54 am Service Date, if different from initiated Date: [] Patient: Asif Longo 55 y/o M admitted on 01/29/20 for shortness of breath. Chief Complaint: Patient was at [facility] for 5 days for hypercapnic respiratory failure diagnosed with obesity hypoventilation syndrome and also diastolic heart failure. He was significantly fluid overloaded when he arrived and was diuresed significantly while there. Seen by Dr. Gardiner on the 04/12 and had pulmonary function testing suggesting a restrictive lung disease, likely related to his morbid obesity. He was supposed to undergo a sleep study but has not had that yet. He has been borrowing a family members BiPAP or CPAP machine. I said he was doing okay initially at home but on Wednesday started having some monomeric confusion and some jerking. He is also had decreased appetite and oral intake. Symptoms of confusion and weakness became so worse today that she brought him into the ED. In the ED he was evaluated and found to have severe metabolic disturbance with a creatinine of 8.5 potassium 6.4 sodium 128. His ABG showed a pH of 7.18 with a CO2 of 72. Globin of 17 evidence of hemoconcentration. Hypotensive in the high 70s to 80s. Given IV fluid boluses and put on BiPAP with improvement in his mentation. Business Control Specialist Dr. Myrick was contacted and patient was started on continued IV fluids per his direction. She had a Covid test in the ED which is negative. 01/29 Patient was able to sleep well last night. Feels little better. Blood pressure little low last night but improved today. Laboratory work is improved today. 01/30-patient clinically improving. Creatinine down to 1.8. On 4 L oxygen. Off BiPAP. Sats at goal. Potassium 5.8. Blood sugars around 200. BUN down to 61. Nephrology on board. Transfer to PCU today. Constitutional Vitals: Vital Signs Temp Pulse Resp BP Pulse Ox 98.9 F 77 23 H 152/77 94 01/31/20 08:01 01/30/20 13:49 01/31/20 08:01 01/31/20 08:01 01/31/20 08:00 Period Temp Pulse Resp BP Sys/Amado Pulse Ox Last 24 Hr 97.1 F-98.9 F 77 17-28 67-158/47-103 89-98 Intake and Output 01/30/20 01/31/20 01/31/20 21:59 05:59 13:59 Intake Total 950 Output Total 1700 850 500 Balance -750 -850 -500 Weight 115.349 kg Alert oriented nonlabored breathing No telemetry events Clear urine No anxiety Intake & Output: Intake & Output 01/30/20 01/31/20 01/31/20 21:59 05:59 13:59 Intake Total 950 Output Total 1700 850 500 Balance -750 -850 -500 Weight 115.349 kg Intake: IV 500 Sodium Chloride 0.9% 500 ml @ 500 100 mls/hr IV BOLUS ONE Rx#: [id number] Oral 450 Output: Void Amount 1700 850 500 Other: Urine Appearance Clear Clear Clear Urine Color Bright Yellow Bright Yellow Bright Yellow Urine Odor Strong Strong Stool Size Large Stool Color Brown Stool Consistency Soft # Bowel Movements 1 OBJ DATA Labs CBC & Chem 7: 01/30/20 05:05 01/31/20 05:25 Labs: Abnormal Lab Results 01/31/20 01/30/20 01/30/20 05:25 05:05 05:05 RBC Hgb MCHC 30.8 L RDW 15.2 H MPV 11.8 H Lymph % (Auto) [place] % (Auto) Lymph # (Auto) [place] # (Auto) POC Sodium Sodium POC Potassium Potassium 5.8 H 5.5 H POC Chloride Chloride 95 L POC BUN BUN 61 H 101 H* Creatinine 1.8 H 4.8 H POC Creatinine Glucose 239 H POC Glucose Hemoglobin A1c Uric Acid 8.9 H 10.2 H POC WB Ioniz Calcium Phosphorus 4.9 H Magnesium 2.9 H 2.8 H Lactate Dehydrogenase 315 H 230 H Troponin T Albumin 3.0 L Albumin/Globulin Ratio 0.9 L 0.9 L Triglycerides 166 H 01/29/20 01/29/20 01/29/20 17:26 17:26 13:55 RBC Hgb MCHC RDW MPV Lymph % (Auto) [place] % (Auto) Lymph # (Auto) [place] # (Auto) POC Sodium Sodium 129 L 130 L POC Potassium Potassium 5.9 H* 6.0 H* POC Chloride Chloride 90 L 92 L POC BUN BUN 120 H* 122 H* Creatinine 7.2 H* 7.0 H* POC Creatinine Glucose 67 L 67 L POC Glucose Hemoglobin A1c 9.8 H Uric Acid POC WB Ioniz Calcium Phosphorus 6.2 H* Magnesium Lactate Dehydrogenase Troponin T 0.07 H* Albumin Albumin/Globulin Ratio Triglycerides 01/29/20 01/29/20 01/29/20 13:55 11:34 11:34 RBC Hgb MCHC RDW MPV Lymph % (Auto) [place] % (Auto) Lymph # (Auto) [place] # (Auto) POC Sodium 128 L Sodium 128 L POC Potassium 6.8 H* Potassium 6.4 H* POC Chloride 95 L Chloride 86 L POC BUN 135 H* BUN 127 H* Creatinine 8.5 H* POC Creatinine 7.9 H* Glucose 29 L* POC Glucose 123 H Hemoglobin A1c Uric Acid POC WB Ioniz Calcium 1.10 L Phosphorus Magnesium Lactate Dehydrogenase Troponin T 0.08 H* Albumin Albumin/Globulin Ratio Triglycerides 01/29/20 11:34 RBC 6.07 H Hgb 17.0 H MCHC RDW 15.2 H MPV 11.9 H Lymph % (Auto) 8.3 L [place] % (Auto) 13.3 H Lymph # (Auto) 0.73 L [place] # (Auto) 1.17 H POC Sodium Sodium POC Potassium Potassium POC Chloride Chloride POC BUN BUN Creatinine POC Creatinine Glucose POC Glucose Hemoglobin A1c Uric Acid POC WB Ioniz Calcium Phosphorus Magnesium Lactate Dehydrogenase Troponin T Albumin Albumin/Globulin Ratio Triglycerides Meds: Medications Acetaminophen (Tylenol) 650 mg PO Q4-6HP PRN PRN Reason: PAIN/FEVER > 101 Albuterol/Ipratropium (Duoneb) 3 ml NEB Q4HRT PRN PRN Reason: dyspnea Bisacodyl (Dulcolax) 10 mg MD Q2-3DAYS PRN PRN Reason: Constipation Dextrose (Dextrose 50%) 0 ml IV UD PRN PRN Reason: Hypoglycemia Diagnostic Test (Pha) (Accu-Chek) 1 each FS ACHS [facility] Last Admin: 01/31/20 08:33 Dose: 1 each Documented by: Famotidine (Pepcid) 20 mg IV HS [facility] Last Admin: 01/30/20 20:52 Dose: 20 mg Documented by: Glucose (Insta-Glucose) 15 gm PO PRN PRN PRN Reason: Hypoglycemia Heparin Sodium (Porcine) (Heparin) 5,000 unit SQ Q12 [facility] Last Admin: 01/31/20 08:35 Dose: 5,000 unit Documented by: Sodium Chloride (Sodium Chloride 0.9%) 250 mls @ 20 mls/hr IV .[id number] [facility] Last Admin: 01/31/20 05:58 Dose: Not Given Documented by: Norepinephrine Bitartrate 8 mg (/ Sodium Chloride) 250 mls @ 18.75 mls/hr IV Q14H PRN; Protocol PRN Reason: TITRATE TO KEEP MAP > 65 Insulin Human Lispro (Humalog) 0 unit SQ ACHS [facility]; Protocol Last Admin: 01/31/20 08:34 Dose: 6 unit Documented by: Ondansetron HCl (Zofran) 4 mg IV Q4-6HP PRN PRN Reason: Nausea And Vomiting Sodium Chloride (Saline Flush) 10 ml IV Q8 [facility] Last Admin: 01/31/20 05:58 Dose: 10 ml Documented by: A/P Narrative A/P Narrative: *acute Encephalopathy, multifactorial including toxic-metabolic /hypoglycemic /hypercapnic: Clinically improved now at baseline. *DAVID with uremia: 2/2 volume depletion & diuretics & Hypotension--Cr 8.5 on admit, now down to 1.8. Improving uremia BUN 61. *HyperKalemia, hyponatremia: 2/2 above plus meds -improving *Hypotension: 2/2 meds -responded to IVF's, now at goal *Hypercapnic respiratory failure: 2/2 above with obesity hypoventilation syndrome & restrictive lung disease-clinically improved. Off BiPAP. Now on 4 L oxygen. *Obesity hypoventilation syndrome/SHIRLEY with restrictive lung disease per recent PFTs: Will need outpatient sleep study *DM w/Hypoglycemia: Improved control *HTN: Medications on hold *Anxiety: Stable *h/o diastolic CHF: *Myoclonus: 2/2 toxic-metabolic encephalopathy Plan * Continue crystalloids * Transfer to PCU * Renal failure/hyperkalemia management per nephrology * Pre-existing medical condition management home meds except for antihypertensives * Outpatient sleep study/pulmonology follow-up * -ppx: heparin/h2 * PT OT nutrition support/discharge planning per case management Time Spent With Patient Time: Total time spent is greater than 50% in coordination of care (as documented) at patient's floor/unit and/or counseling patient:
[2020-01-31] MEDS ORDERED: ACETAMINOPHEN 325 MG TABLET PO PRN (11:22)
[2020-01-31] MEDS ORDERED: DEXTROSE 31 GM ORAL.SUSP PO PRN (11:22)
[2020-01-31] MEDS ORDERED: BISACODYL 10 MG SUPP.RECT PR PRN (11:22)
[2020-01-31] MEDS ORDERED: ONDANSETRON 4 MG/2 ML VIAL IV PRN (11:22)
[2020-01-31] MEDS ORDERED: NOREPINEPHRINE BITARTRATE 8 MG in 0.9 % SODIUM CHLORIDE 242 ML IV PRN (11:22)
[2020-01-31] MEDS ORDERED: IPRATROPIUM/ALBUTEROL 3 ML AMPUL.NEB NEB PRN (11:22)
[2020-01-31] MEDS ORDERED: DEXTROSE 50% 50 ML VIAL IV PRN (11:22)
--- NOTE | 2020-01-31 17:13 | Discharge Summary ---
Discharge Provider Provider Patient information: Note initiated : 02/01/20 at 12:11 pm Service Date, if different from initiated Date: [] Patient: Asif Longo 55 y/o M admitted on 01/29/20 for shortness of breath. Chief Complaint: Discharge diagnosis * Acute Encephalopathy, secondary to uremic/hypercapnic encephalopathy- clinically resolved now back at baseline * *DAVID with uremia: 2/2 volume depletion & diuretics & Hypotension--Cr 8.5 on admit, now down to 1.1. * *HyperKalemia, resolved * -Resolved*Hypotension: 2/2 meds * Hypercapnic respiratory failure: 2/2 above with obesity hypoventilation syndrome & restrictive lung disease-clinically improved. Initially managed on BiPAP. Currently off BiPAP. Will need outpatient sleep study for home BiPAP * *Obesity hypoventilation syndrome/SHIRLEY with restrictive lung disease per recent PFTs: Will need outpatient sleep study * *DM w/Hypoglycemia: Continue CC diet/glipizide * *HTN: Medications held until follow-up with nephrology except for metoprolol * *Anxiety: Stable * *h/o diastolic CHF: * *Myoclonus: 2/2 toxic-metabolic encephalopathy Brief hospital course Patient was at [facility] for 5 days for hypercapnic respiratory failure diagnosed with obesity hypoventilation syndrome and also diastolic heart failure. He was significantly fluid overloaded when he arrived and was diuresed significantly while there. Seen by Dr. Gardiner on the 04/12 and had pulmonary function testing suggesting a restrictive lung disease, likely related to his morbid obesity. He was supposed to undergo a sleep study but has not had that yet. He has been borrowing a family members BiPAP or CPAP machine. I said he was doing okay initially at home but on Wednesday started having some monomeric confusion and some jerking. He is also had decreased appetite and oral intake. Symptoms of confusion and weakness became so worse today that she brought him into the ED. In the ED he was evaluated and found to have severe metabolic disturbance with a creatinine of 8.5 potassium 6.4 sodium 128. His ABG showed a pH of 7.18 with a CO2 of 72. Globin of 17 evidence of hemoconcentration. Hypotensive in the high 70s to 80s. Given IV fluid boluses and put on BiPAP with improvement in his mentation. Foundation Drill Operator Helper Dr. Myrick was contacted and patient was started on continued IV fluids per his direction. She had a Covid test in the ED which is negative. 01/29 Patient was able to sleep well last night. Feels little better. Blood pressure little low last night but improved today. Laboratory work is improved today. 01/30-patient clinically improving. Creatinine down to 1.8. On 4 L oxygen. Off BiPAP. Sats at goal. Potassium 5.8. Blood sugars around 200. BUN down to 61. Nephrology on board. Transfer to PCU today. 01/31-patient discharging advised to discontinue antihypertensives/diuretics as per nephrology recommendations. Patient will follow up with nephrology for further optimizing of hypertension management. Patient will also need outpatient sleep study. Date of admission: 01/29/20 16:40 Discharge date: 02/01/20 Primary care physician: Trevor Elliott Consults: 01/29/20 Consult to Physician [CONS] Stat Comment: Consulting Provider: Lucas Myrick Reason For Exam: Physician to Consult 01/29/20 15:34 Consult to Physician [CONS] Stat Comment: Consulting Provider: Blu Ryan Reason For Exam: Physician to Consult 01/29/20 16:42 Consult to Physician [CONS] Routine Comment: Consulting Provider: Lucas Myrick Reason For Exam: Physician to Consult Discharge Meds Discharge Medications Home Medications aspirin 81 mg PO QDAY 01/29/20 [History Confirmed 01/29/20 Last Taken Unknown] blood-glucose meter [True Metrix Air Glucose Meter] 01/29/20 [History Confirmed 01/29/20 Last Taken Unknown] glipizide 10 mg PO BID 01/29/20 [History Confirmed 01/29/20 Last Taken Unknown] hydroxyzine HCl 50 mg PO Q4H PRN 01/29/20 [History Confirmed 01/29/20 Last Taken Unknown] metoprolol succinate 50 mg PO BID 01/29/20 [History Confirmed 01/29/20 Last Taken Unknown] furosemide [Lasix] 20 mg PO BID #30 tab 02/01/20 [Rx Last Taken Unknown] COURSE Hospital Course Hospital course: . Discharge diagnosis: . Time Spent with Patient Time attestation: Total time spent providing and/or coordinating discharge services: EXAM Constitutional Vitals: Temp Pulse Resp BP Pulse Ox 98 F 77 20 119/80 99 01/31/20 16:03 01/30/20 13:49 01/31/20 16:03 01/31/20 16:03 01/31/20 16:03 Discharge Data Data Completed and Pending Labs on day of discharge: Labs from last 24 hours 01/31/20 05:25 Sodium 136 Potassium 5.8 H Chloride 99 Carbon Dioxide 26 Anion Gap 11.0 BUN 61 H Creatinine 1.8 H GFR Calculation 41 Glucose 239 H Uric Acid 8.9 H Calcium 9.5 Phosphorus 3.6 Magnesium 2.9 H Total Bilirubin 0.6 Direct Bilirubin < 0.2 GGT 22 AST 23 ALT 26 Alkaline Phosphatase 44 Lactate Dehydrogenase 315 H Total Protein 6.9 Albumin 3.2 Globulin 3.7 Albumin/Globulin Ratio 0.9 L Triglycerides 140 Discharge Plan Patient/Caregiver Discharge Instructions Activity: increase activity as tolerated Diet: Renal Activity Restrictions/Additional Instructions: f/u nephrology on discharge Discontinue Diamox/thiazide/spironolactone/torsemide per nephrology Hold losartan/Metformin/amlodipine until follow-up with nephrology. return to er if Dizziness, weakness lightheadedness noted Prescriptions: New furosemide [Lasix] 20 mg tablet 20 mg PO BID Qty: 30 RF: 0 Continued metoprolol succinate 50 mg Tablet Extended Release 24 Hr 50 mg PO BID RF: 0 glipizide 10 mg Tablet 10 mg PO BID RF: 0 aspirin 81 mg Tablet,Chewable 81 mg PO QDAY RF: 0 hydroxyzine HCl 25 mg Tablet 50 mg PO Q4H PRN (Reason: .) RF: 0 Discontinued torsemide 20 mg Tablet 20 mg PO QDAY RF: 0 acetazolamide 250 mg Tablet 125 mg PO BID RF: 0 spironolactone 25 mg Tablet 25 mg PO BID RF: 0 amlodipine 10 mg Tablet 10 mg PO QDAY RF: 0 hydrochlorothiazide 25 mg Tablet 25 mg PO QDAY RF: 0 losartan 100 mg Tablet 100 mg PO QDAY RF: 0 metformin 1,000 mg Tablet Extended Release 24hr 1,000 mg PO BID RF: 0 potassium chloride 20 mEq Tablet Extended Release 20 meq PO QDAY RF: 0 No Action (DME) blood-glucose meter [True Metrix Air Glucose Meter] Kit MISCELLANEOUS RF: 0 Follow Up Plan Follow up with: Trevor Elliott DO [Primary Care Provider] - Patient Disposition: Home, Self-Care Rehab Potential: Fair I certify that the patient requires SNF services: No Overall status at discharge: patient is progressing back to baseline Discharge Orders: Discharge Order (Routine); Ordered 02/01/20 Ordered By: Chandu Arzate
--- NOTE | 2020-01-31 18:57 | Nephrology Progress Note ---
SUBJECTIVE Subjective Patient information: Note initiated : 01/31/20 at 6:51 pm Service Date, if different from initiated Date: [] Patient: Asif Longo 55 y/o M admitted on 01/29/20 for shortness of breath. Chief Complaint: [Acute renal failure with multiple electrolyte abnormalities] I believe this patient's basic problem is obesity related hypoventilation requiring BiPAP therapy which is yet to be arranged prior to his discharge from [facility] last week. He was so heavily diuresed that he developed acute renal failure with a creatinine going from 1-8.5 with hyperkalemia, hypoglycemia from prolonged glipizide effect with the acute renal failure, lethargy from acute on chronic respiratory failure with hypercapnia, the primary respiratory acidosis with. failure of any renal compensation to the use of Diamox from the preceding hospitalization, hypotension and volume contraction from Aldactone loop diuretics, Diamox, finally hyper kalemia from all the combined effects of acute renal failure medications including Aldactone and acidosis, active insulin effect, and the effect of beta-blockers on inhibiting cellular uptake potassium All lab studies improved for the past 72 hours and is tolerating periods of time without BiPAP and appears to be close to euvolemia. If I had by way, a lifesaving intervention would be bariatric surgery which would improve his respiratory status and his diabetes. All other attempts fail to address the primary cause of this patient's problems. Laboratory Tests 01/31/20 05:25 Sodium 136 Potassium 5.8 H Chloride 99 Carbon Dioxide 26 BUN 61 H Creatinine 1.8 H GFR Calculation 41 Glucose 239 H Uric Acid 8.9 H Calcium 9.5 Phosphorus 3.6 Magnesium 2.9 H Lactate Dehydrogenase 315 H Albumin 3.2 Constitutional Vitals: Vital Signs Temp Pulse Resp BP Pulse Ox 36.6 C 77 20 119/80 99 01/31/20 16:03 01/30/20 13:49 01/31/20 16:03 01/31/20 16:03 01/31/20 16:03 Period Temp Pulse Resp BP Sys/Amado Pulse Ox Last 24 Hr 36.6 C-37.2 C 95-158/61-103 92-99 Intake and Output 01/31/20 01/31/20 01/31/20 05:59 13:59 21:59 Intake Total 520 Output Total 850 900 125 Balance -850 -900 395 Intake & Output: Intake & Output 01/31/20 01/31/20 01/31/20 05:59 13:59 21:59 Intake Total 520 Output Total 850 900 125 Balance - -979 395 Intake: Oral 520 Output: Void Amount 850 900 125 Other: Meal Dinner Percent of Meal Consumed 100% Urine Appearance Clear Clear Clear Urine Color Bright Yellow Bright Yellow Bright Yellow Urine Odor Strong Normal Stool Size Large Stool Color Brown Stool Consistency Soft General appearance: disheveled and obese Head Head exam: Present atraumatic and normocephalic Eye Eye exam: Present EOMI and PERRL Pupils: Present PERRL ENT ENT exam: Present mucous membranes dry Neck Neck exam: Present full ROM; Absent meningismus Respiratory Respiratory exam: Present respiratory distress and rhonchi Cardiovascular Cardiovascular exam: Present normal rate and rhythm, RRR, +S1 and +S2; Absent JVD GI/Abdominal Additional comments: obese Extremities Exam Extremities exam: Present pedal edema (Trace); Absent calf tenderness Back Exam Back exam: Absent CVA tenderness (L) and CVA tenderness (R) Neurological Exam Neurological exam: Present CN II-XII intact and oriented X3 Psychiatric Psychiatric exam: Present normal affect Skin Skin exam: Present dry A/P Assessment and plan (1) Acute renal failure (ARF): Assessment and plan: * The most likely explanation is excessive diuresis leading to hypotension in the presence of an ARB medication which would lead to decreased renal perfusion and acute renal failure * If this is the case one would expect improvement in GFR within 72 hours of anglican of adequate blood pressure * Continue volume expansion * Bicarb containing fluids to correct respiratory acidosis - mission accomplished. Bicarb drip stopped earlier today * Further recommendations to follow * Given the improvement in potassium no acute need for dialysis anticipated Status: Acute Qualifiers: Acute renal failure type: unspecified Qualified Code(s): N17.9 - Acute kidney failure, unspecified (2) Abnormal blood electrolyte level: Assessment and plan: * Hyperkalemia due to decreased GFR, intracellular fluid shifts due to beta-blockers, decreased renal elimination due to ARB therapy, decreased cellular uptake due to lack of insulin and hypoglycemia * Kayexalate has been given * Bicarbonate containing IV fluids as pH initially was 7.1 * Glucose and insulin as needed * Above successful, stop bicarb and kayexalate Status: Acute (3) Hypoglycemia: Assessment and plan: * Most likely the prolonged T1 half of glipizide in the setting of acute renal failure * This should improve with time holding the glipizide * Dextrose containing IV fluids have been ordered and finally stopped Status: Acute (4) Acute and chronic respiratory failure with hypoxia: Assessment and plan: * Respiratory acidosis and hypoxemia due to hypoventilation should respond to BiPAP * He should then be discharged without BiPAP therapy at home * Need to adjust his diuretics once his GFR improves * Hold all diuretics for now Status: Acute Comment: This is the main problem (5) Diastolic heart failure: Assessment and plan: * When his GFR improves and hemodynamics improve, can use beta-rick or diltiazem to keep heart rate slow as his primary cardiac issues diastolic dysfunction * Need to let us blood pressure trend to about 120-130 systolic * Further recommendations will be made on a daily basis Status: Acute Comment: Beta-blockers and/or diltiazem Add back loop diuretic when edema returns and blood pressure better Qualifiers: Heart failure chronicity: acute on chronic Qualified Code(s): I50.33 - Acute on chronic diastolic (congestive) heart failure (6) Obesity hypoventilation syndrome: Assessment and plan: * Will need BiPAP at home * Has yet to undergo a sleep study * Catch 22 => too sick to go home w/o BiPAP but does not qualify without an outpatient sleep study Status: Acute Narrative A/P Narrative: Doing better with the exception of some mild increase in serum potassium This should respond with treating his hyperglycemia Need to start mobilizing the patient BiPAP at night Discharge planning should include urgent outpatient sleep study to qualify the patient for BiPAP which is the only way he can stay out of the hospital Longer term he needs to be referred for bariatric surgery as all problems stem from central obesity and morbid obesity he would easily qualify Time Spent With Patient Time: Total time spent is greater than 50% in coordination of care (as documented) at patient's floor/unit and/or counseling patient: Total time spent with greater than 50% in coordination of care (as documented) at patient's floor/unit and/or counseling patient:: Greater than 35 minutes
[2020-01-31] MEDS ORDERED: FAMOTIDINE/PF 20 MG/2 ML VIAL IV SCH (21:00)
[2020-01-31] MEDS: METOPROLOL SUCCINATE 50 MG TAB.XL.24H PO SCH (21:05)
[2020-02-01] MEDS: 0.9 % SODIUM CHLORIDE 250 ML IV SCH (00:38)
[2020-02-01] MEDS: 0.9 % SODIUM CHLORIDE 10 ML SYRINGE IV SCH (05:36)
[2020-02-01] MEDS: INSULIN LISPRO 1 UNIT/0.01 ML UNIT SQ SCH ×2 (07:55→12:09)
[2020-02-01] MEDS: HEPARIN 5,000 UNIT/ML VIAL SQ SCH (09:40)
[2020-02-01] MEDS: METOPROLOL SUCCINATE 50 MG TAB.XL.24H PO SCH (09:40)
[2020-02-01] MEDS ORDERED: LORazepam 2 MG/ML VIAL IV ONE (09:52)
[2020-02-01 10:00] LABS: ALT/SGPT 28 U/L (<40); AST/SGOT 18 U/L (<40); Albumin 3.3 gm/dL (3.2-5.2); Albumin/Globulin Ratio 0.9 (1.0-2.3); Alkaline Phosphatase 48 U/L (39-117); Bilirubin,Direct < 0.2 mg/dL (<0.3); Bilirubin,Total 0.6 mg/dL (0.1-1.0); Blood Urea Nitrogen 37 mg/dL (6-20); Calcium 9.8 mg/dL (8.6-10.4); Carbon Dioxide 27 mmol/L (22-30); Chloride 94 mmol/L (96-108); Globulin 3.8 gm/dL (2.2-3.7); Glomerular Filtration Rate 74; Glucose 350 mg/dL (70-105); Lactate Dehydrogenase 183 U/L (135-225); Phosphorous 3.2 mg/dL (2.5-4.5); Triglycerides 138 mg/dL (<150); Uric Acid 7.5 mg/dL (2.5-8.0)
[2020-02-01] MEDS ORDERED: LORazepam 2 MG/ML VIAL ONE (10:02)
[2020-02-01] MEDS ORDERED: 0.9 % SODIUM CHLORIDE 250 ML IV SCH (12:09)
[2020-02-01] MEDS ORDERED: NOREPINEPHRINE BITARTRATE 8 MG in 0.9 % SODIUM CHLORIDE 242 ML IV PRN (12:09)
[2020-02-01] MEDS ORDERED: BISACODYL 10 MG SUPP.RECT PR PRN (12:09)
[2020-02-01] MEDS ORDERED: DEXTROSE 31 GM ORAL.SUSP PO PRN (12:09)
[2020-02-01] MEDS ORDERED: ONDANSETRON 4 MG/2 ML VIAL IV PRN (12:09)
[2020-02-01] MEDS ORDERED: ACETAMINOPHEN 325 MG TABLET PO PRN (12:09)
[2020-02-01] MEDS ORDERED: DEXTROSE 50% 50 ML VIAL IV PRN (12:09)
[2020-02-01] MEDS ORDERED: IPRATROPIUM/ALBUTEROL 3 ML AMPUL.NEB NEB PRN (12:09)
[2020-02-01] MEDS ORDERED: 0.9 % SODIUM CHLORIDE 10 ML SYRINGE IV SCH (14:00)
[2020-02-01] MEDS ORDERED: INSULIN LISPRO 1 UNIT/0.01 ML UNIT SQ SCH (17:00)
--- NOTE | 2020-02-01 18:11 | Nephrology Progress Note ---
SUBJECTIVE Subjective Patient information: Note initiated : 02/01/20 at 6:08 pm Service Date, if different from initiated Date: [] Patient: Asif Longo 55 y/o M admitted on 01/29/20 for shortness of breath. Chief Complaint: [Overzealous diuresis with acute renal failure and multiple electrolyte abnormalities] Primary issue is morbid obesity with obesity related hypoventilation, obstructive sleep apnea, which would be best addressed with bariatric surgery. Recently discharged from an outside hospital where he was intensively diuresed on a combination of 4 different diuretics the end result is his serum creatinine went from 1.0 to 8.5 with hyperkalemia, respiratory acidosis with no renal compensation (acetazolamide), hypotension, and hypoglycemia due to prolonged half-life of glipizide in the setting of acute renal failure. Laboratory Tests 02/01/20 08:51 Sodium 131 L Potassium 5.0 Chloride 94 L Carbon Dioxide 27 Anion Gap 10.0 BUN 37 H Creatinine 1.1 GFR Calculation 74 Glucose 350 H Uric Acid 7.5 Calcium 9.8 Phosphorus 3.2 Magnesium 2.3 Total Bilirubin 0.6 AST 18 ALT 28 Alkaline Phosphatase 48 Lactate Dehydrogenase 183 Total Protein 7.1 Albumin 3.3 Triglycerides 138 Okay for discharge from my point of view. I would hold his blood pressure medications. Restart his glipizide at his outpatient dose Do not restart any of his prehospitalization diuretics I have recommended furosemide 20 mg twice a day I will see him back in follow-up in my office He desperately needs outpatient evaluation for BiPAP He also needs referral for bariatric surgery which will be lifesaving in this case Constitutional Vitals: Vital Signs Temp Pulse Resp BP Pulse Ox 36.7 C 77 20 108/69 94 02/01/20 14:43 02/01/20 14:43 02/01/20 14:43 02/01/20 14:43 02/01/20 14:43 Period Temp Pulse Resp BP Sys/Amado Pulse Ox Last 24 Hr 36.7 C-36.8 C 74-77 18-27 108-162/69-90 90-97 Intake and Output 02/01/20 02/01/20 02/01/20 05:59 13:59 21:59 Intake Total 240 240 Output Total 625 Balance -625 240 240 Physical Exam: General appearance: disheveled and obese Head exam: Present atraumatic and normocephalic Eye exam: Present EOMI and PERRL Pupils: Present PERRL ENT ENT exam: Present mucous membranes dry Neck exam: Present full ROM; Absent meningismus Respiratory exam: Present respiratory distress and rhonchi Cardiovascular exam: Present normal rate and rhythm, RRR, +S1 and +S2; Absent JVD GI/Abdominal Additional comments: obese Extremities exam: Present pedal edema (Trace); Absent calf tenderness Back exam: Absent CVA tenderness (L) and CVA tenderness (R) Neurological exam: Present CN II-XII intact and oriented X3 Psychiatric exam: Present normal affect Skin exam: Present dry Intake & Output: Intake & Output 02/01/20 02/01/20 02/01/20 05:59 13:59 21:59 Intake Total 240 240 Output Total 625 Balance -625 240 240 Intake: Oral 240 240 Output: Void Amount 625 Other: Meal Breakfast Lunch Percent of Meal Consumed 50% 100% Feeding Ability Independent Independent Urine Appearance Clear Urine Color Dark Yellow Urine Odor Strong A/P Assessment and plan (1) Acute renal failure (ARF): Assessment and plan: * The most likely explanation is excessive diuresis leading to hypotension in the presence of an ARB medication which would lead to decreased renal perfusion and acute renal failure * If this is the case one would expect improvement in GFR within 72 hours of faith of adequate blood pressure * Continue volume expansion * Bicarb containing fluids to correct respiratory acidosis - mission accomplished. Bicarb drip stopped earlier today * Further recommendations to follow * Given the improvement in potassium no acute need for dialysis anticipated Status: Acute Qualifiers: Acute renal failure type: unspecified Qualified Code(s): N17.9 - Acute kidney failure, unspecified (2) Abnormal blood electrolyte level: Assessment and plan: * Hyperkalemia due to decreased GFR, intracellular fluid shifts due to beta-blockers, decreased renal elimination due to ARB therapy, decreased cellular uptake due to lack of insulin and hypoglycemia * Kayexalate has been given * Bicarbonate containing IV fluids as pH initially was 7.1 * Glucose and insulin as needed * Above successful, stop bicarb and kayexalate Status: Acute (3) Hypoglycemia: Assessment and plan: * Most likely the prolonged T1 half of glipizide in the setting of acute renal failure * This should improve with time holding the glipizide * Dextrose containing IV fluids have been ordered and finally stopped Status: Acute (4) Acute and chronic respiratory failure with hypoxia: Assessment and plan: * Respiratory acidosis and hypoxemia due to hypoventilation should respond to BiPAP * He should then be discharged without BiPAP therapy at home * Need to adjust his diuretics once his GFR improves * Hold all diuretics for now Status: Acute Comment: This is the main problem (5) Diastolic heart failure: Assessment and plan: * When his GFR improves and hemodynamics improve, can use beta-rick or diltiazem to keep heart rate slow as his primary cardiac issues diastolic dysfunction * Need to let us blood pressure trend to about 120-130 systolic * Further recommendations will be made on a daily basis Status: Acute Comment: Beta-blockers and/or diltiazem Add back loop diuretic when edema returns and blood pressure better Qualifiers: Heart failure chronicity: acute on chronic Qualified Code(s): I50.33 - Acute on chronic diastolic (congestive) heart failure (6) Obesity hypoventilation syndrome: Assessment and plan: * Will need BiPAP at home * Has yet to undergo a sleep study * Catch 22 => too sick to go home w/o BiPAP but does not qualify without an outpatient sleep study Status: Acute Narrative A/P Narrative: No objection to discharge at this juncture. Furosemide 20 mg p.o. twice daily Restart glipizide Hold all his prehospitalization diuretics and blood pressure medications Needs outpatient sleep study for BiPAP therapy Needs outpatient referral for bariatric surgery Follow-up in my clinic within a week Time Spent With Patient Time: Total time spent is greater than 50% in coordination of care (as documented) at patient's floor/unit and/or counseling patient: Total time spent with greater than 50% in coordination of care (as documented) at patient's floor/unit and/or counseling patient:: Greater than 35 minutes
[2020-02-01] MEDS ORDERED: HEPARIN 5,000 UNIT/ML VIAL SQ SCH (21:00)
[2020-02-01] MEDS ORDERED: METOPROLOL SUCCINATE 50 MG TAB.XL.24H PO SCH (21:00)
[2020-02-01] MEDS ORDERED: FAMOTIDINE/PF 20 MG/2 ML VIAL IV SCH (21:00)
== END 2020-02-01 14:35 | disposition home or self-care (01) | DRG 70 ==
LOC: ED 10:47 → ICU 16:40 → MEDSUR 02-01 12:15
PROVIDERS: ADMIT Internal Medicine; ATTEND Internal Medicine